=== PATIENT | male | born 1970 | race Caucasian/White ===

== ENCOUNTER 2024-01-16 04:39 | Emergency (ER) | payer OTHER, SELFPAY ==
[2024-01-16 04:45] VITALS: BP 134/92; PULSE 84; TEMP 37.1; O2SAT 98; BMI 24.0
--- NOTE | 2024-01-16 04:59 | ECG_ITS ---
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
--- NOTE | 2024-01-16 04:59 | XR_ITS ---
The [address] [address] Patient Name: YULIYA WU MRN: [id number] date: 1970 Sex: M Assigned Patient Location: ED.MAIN Current Patient Location: ER Accession/Order Number: [id number] Exam Date: 01/16/2024 06:00 Report Date: 01/16/2024 06:20 At the request of: GEOVANNI PHAM Procedure: XR chest 1V EXAMINATION: XR chest 1V HISTORY: chest pain COMPARISON: No relevant comparison available. FINDINGS: LUNGS: No significant pulmonary parenchymal abnormalities. VASCULATURE: No increased pulmonary vasculature. PLEURA: No pneumothorax, effusion, or pleural thickening. CARDIAC: No cardiomegaly or cardiac silhouette abnormality. MEDIASTINUM: No visible mass or adenopathy. BONES: No fracture or visible bone lesion. OTHER: Negative. XR/XR chest 1V IMPRESSION: 1. No abnormal or suspicious findings of the chest. Electronically authenticated by: VALENTE ALVARENGA Date: 01/16/2024 06:20
--- NOTE | 2024-01-16 05:00 | ED.GENADUL1 ---
HPI HPI - General Adult General Chief complaint: Neck Pain/Injury Stated complaint: NECK PAIN Time Seen by Provider: 01/16/24 04:47 Source: patient Mode of arrival: walk-in Limitations: no limitations History of Present Illness HPI narrative: patient describes pushing a heavy object at work last PM and experienced an acute popping sensation left posterior shoulder. since then has numbness down his left arm. No weakness. No chest pain or nausea. No dyspnea. Concerned this may be his heart and came in to get checked. No family history of CAD. Non smoker. incident occurred about 6 hours ago Related Data Allergies Allergy/AdvReac Type Severity Reaction Status Date / Time No Known Drug Allergies Allergy Verified 01/16/24 04:48 Opioid HPI Opioid Management Most Recent Opioid Data: No Data to Display Review of Systems ROS Status of ROS 10 or more systems reviewed and unremarkable except as noted in history and below PFSH PFSH Social History Little interest or pleasure in doing things: not at all Feeling down, depressed, or hopeless: not at all Exam Constitutional Vital Signs, click to edit/add: Last Vital Signs Temp 98.7 F 01/16/24 04:45 Pulse 84 01/16/24 04:45 Resp 16 01/16/24 04:45 BP 134/92 H 01/16/24 04:45 Pulse Ox 98 01/16/24 04:45 O2 Del Method Room Air 01/16/24 04:45 Common normals: no apparent distress, average body habitus, oriented x3, no limitations, healthy appearing, alert and well nourished [facility] Common normals: normocephalic and head/scalp atraumatic Eye Common normals: PERRL and EOMs intact bilaterally Respiratory Common normals: normal respiratory effort, no retractions, no use of accessory muscles and clear to auscultation bilaterally Cardio Common normals: regular rate, regular rhythm, S1 normal heart sound and S2 normal heart sound Extremity Common normals: normal to inspection and full ROM Neuro Common normals: oriented x3, CN's II-XII intact bilaterally, moves all extremities, no focal motor deficits and no sensory deficits noted Psych Appearance: grossly normal Course Vital Signs Vital signs: Vital Signs Temperature 98.7 F 01/16/24 04:45 Pulse Rate 84 01/16/24 04:45 Respiratory Rate 16 01/16/24 04:45 Blood Pressure 134/92 H 01/16/24 04:45 Pulse Oximetry 98 01/16/24 04:45 Oxygen Delivery Method Room Air 01/16/24 04:45 Temperature 98.7 F 01/16/24 04:45 Pulse Rate 84 01/16/24 04:45 Respiratory Rate 16 01/16/24 04:45 Blood Pressure 134/92 H 01/16/24 04:45 Pulse Oximetry 98 01/16/24 04:45 Oxygen Delivery Method Room Air 01/16/24 04:45 Medical Decision Making MDM Narrative Medical decision making narrative: patient states he was pushing something at work last PM around 11pm and experienced a popping sensation left posterior shoulder. Developed numbness down the left arm. Presents to ER 6 hours later due to continued numbness of his arm. No weakness. Concerned about possible heart as cause of his presentation. EKGnormal . cxray normal. neg troponin. Patient advised of working diagnosis of neuropathy and not cardiac. He was also informed that he has mild renal insufficiency and should followup with his family doctor Lab Data Labs: Lab Results 01/16/24 Range/Units 05:05 WBC 6.8 (4.0-11.0) 10^3/uL RBC 4.77 (4.70-6.10) 10^6/uL Hgb 14.2 (14.0-18.0) g/dL Hct 41.4 L (42.0-54.0) % MCV 86.8 (80.0-94.0) fL MCH 29.8 (25.9-34.0) pg MCHC 34.3 (29.9-35.2) g/dL RDW 12.0 (11.0-15.0) % Plt Count 239 (150-450) 10^3/uL MPV 8.9 L (9.5-13.5) fL Neut % (Auto) 57.1 (43.0-75.0) % Lymph % (Auto) 30.6 (20.5-60.0) % [place] % (Auto) 7.8 (1.7-12.0) % Eos % (Auto) 3.7 (0.9-7.0) % Baso % (Auto) 0.4 (0.2-2.0) % Neut # (Auto) 3.9 (1.4-6.5) 10^3/uL Lymph # (Auto) 2.1 (1.2-3.8) 10^3/uL [place] # (Auto) 0.5 (0.3-0.8) 10^3/uL Eos # (Auto) 0.3 (0.0-0.7) 10^3/uL Baso # (Auto) 0.0 (0.0-0.1) 10^3/uL Abs Immat Gran (auto) 0.03 (0.00-0.03) 10^3/uL Imm/Tot Granulo (auto) 0.4 (0.0-0.5) % Sodium 139 (136-145) mmol/L Potassium 4.1 (3.5-5.1) mmol/L Chloride 105 (98-107) mmol/L Carbon Dioxide 26.7 (21.0-32.0) mmol/L Anion Gap 11.4 BUN 20.0 H (7.0-18.0) mg/dL Creatinine 1.43 H (0.70-1.30) mg/dL Est GFR ( Amer) >60 (>=60 mL/min/1.73m^2) Est GFR (Non-Af Amer) 52 L (>=60 mL/min/1.73m^2) BUN/Creatinine Ratio 14.0 Glucose 105 (74-106) mg/dL Calcium 8.9 (8.5-10.1) mg/dL Troponin I High Sens 5.7 (4.0-76.1) pg/mL Discharge Plan Discharge Chief Complaint: Neck Pain/Injury Clinical Impression: Cervical radiculopathy Patient Disposition: Home, Self-Care Print Language: Chadian Instructions: Cervical Radiculopathy (ED) Additional Instructions: follow up with your doctor this week for recheck Referrals: Timbo Hernandez DO [Primary Care Provider] - 1 week
[2024-01-16 05:13] LABS: Basophils Percent Auto 0.4 % (0.2-2.0); Eosinophils Absolute Auto 0.3 10^3/uL (0.0-0.7); Eosinophils Percent Auto 3.7 % (0.9-7.0); Hematocrit 41.4 % (42.0-54.0); Hemoglobin 14.2 g/dL (14.0-18.0); Immature Granulocytes Abs Auto 0.03 10^3/uL (0.00-0.03); Immature Granulocytes Pct Auto 0.4 % (0.0-0.5); Lymphocytes Absolute Auto 2.1 10^3/uL (1.2-3.8); Lymphocytes Percent Auto 30.6 % (20.5-60.0); Mean Corpuscular HGB Conc 34.3 g/dL (29.9-35.2); Mean Corpuscular Hemoglobin 29.8 pg (25.9-34.0); Mean Corpuscular Volume 86.8 fL (80.0-94.0); Mean Platelet Volume 8.9 fL (9.5-13.5); Monocytes Absolute Auto 0.5 10^3/uL (0.3-0.8); Monocytes Percent Auto 7.8 % (1.7-12.0); Neutrophils Absolute Auto 3.9 10^3/uL (1.4-6.5); Neutrophils Percent Auto 57.1 % (43.0-75.0); Platelet Count 239 10^3/uL (150-450); Red Blood Count 4.77 10^6/uL (4.70-6.10); White Blood Count 6.8 10^3/uL (4.0-11.0)
[2024-01-16 05:34] LABS: Anion Gap 11.4; Calcium 8.9 mg/dL (8.5-10.1); Carbon Dioxide 26.7 mmol/L (21.0-32.0); Chloride 105 mmol/L (98-107); Estimated GFR (African America >60 (>=60 mL/min/1.73m^2); Estimated GFR (Non-African Ame 52 (>=60 mL/min/1.73m^2); Glucose 105 mg/dL (74-106); Potassium 4.1 mmol/L (3.5-5.1); Sodium 139 mmol/L (136-145); Troponin I High Sensitivity 5.7 pg/mL (4.0-76.1)
== END 2024-01-16 07:00 | disposition home or self-care (01) ==
PROVIDERS: Emergency Provider Internal Medicine; PCP Internal Medicine
DX: M54.12 Radiculopathy, cervical region (principal); N28.9 Disorder of kidney and ureter, unspecified
CPT/HCPCS: 36415; 71045; 80048; 84484; 85025; 93005; 99285